=== PATIENT | female | born 1970 | race Caucasian/White ===

== ENCOUNTER 2023-12-21 04:10 | Emergency (ER) | payer OTHER ==
[~2023-12-21] VITALS: Ht 152.4 cm; Wt 65.8 kg
[2023-12-21 04:20] VITALS: BP 172/101; PULSE 104; RESP 18; TEMP 98.7; O2SAT 97
[2023-12-21] MEDS: IBUPROFEN 600 MG TAB PO ONE (04:36)
== END 2023-12-21 05:12 | disposition home or self-care (01) ==
LOC: MED 04:10
DX: S43.401A Unspecified sprain of right shoulder joint, initial encounter (principal); Y04.8XXA Assault by other bodily force, initial encounter; Y93.89 Activity, other specified; Y92.59 Other trade areas as the place of occurrence of the external cause; Y99.8 Other external cause status
CPT/HCPCS: 73030; 99283